=== PATIENT | female | born 1950 | race Caucasian/White ===

== ENCOUNTER 2023-01-25 12:46 | Inpatient (IN) | payer MEDICAID ==
[~2023-01-25] VITALS: Ht 154.9 cm; Wt 78.5 kg
[2023-01-25 16:41] LABS: BASOPHILS % 0.6 % (0.0-2.0); EOSINOPHILS % 3.9 % (0.0-5.0); LYMPHOCYTES % 32.6 % (20.0-50.0); MEAN CORPUSCULAR HEMOGLOBIN 22.6 pg (28.0-32.0); MEAN CORPUSCULAR VOLUME 73.9 fL (81.0-99.0); MEAN PLATELET VOLUME 7.2 fl (7.4-10.4); MONOCYTES % 10.6 % (2.0-8.0); NEUTROPHILS % 52.3 % (40.0-76.0); PLATELET 304 x1000/uL (130-400); RED BLOOD CELL COUNT 2.92 mill/uL (4.2-5.4); RED CELL DISTRIBUTION WIDTH 21.3 % (11.6-14.6)
[2023-01-25 16:45] LABS: INR 1.2
[2023-01-25 16:48] LABS: HEMATOCRIT. 21.6 % (36.0-48.0); HEMOGLOBIN. 6.6 g/dL (12.0-16.0)
[2023-01-25 16:52] LABS: CHLORIDE 106 mEq/L (98-107)
[2023-01-25] MEDS ORDERED: ONDANSETRON HCL 4MG/2ML INJ IV PRN (19:15)
[2023-01-25] MEDS ORDERED: CLONIDINE 0.1MG TABLET PO PRN (19:15)
[2023-01-25] MEDS ORDERED: DIPHENHYDRAMINE 50MG/ML VIAL IV PRN (19:15)
[2023-01-25] MEDS ORDERED: ACETAMINOPHEN 325MG TABLET PO PRN (19:15)
[2023-01-25] MEDS ORDERED: IPRATROPIUM/ALBUTEROL 0.5-3(2.5)MG/3ML NEB HHN PRN (19:15)
[2023-01-25] MEDS: SODIUM CHLORIDE 0.9% 1,000 ML IV SCH (19:18)
[2023-01-25 20:00] LABS: TOTAL IRON BINDING CAPACITY 355 ug/dL (250-450)
[2023-01-25 20:32] LABS: FOLIC ACID (FOLATE) SERUM 18.1 ng/mL (>5.38)
[2023-01-25 22:30] VITALS: BP 119/60
[2023-01-25 22:53] VITALS: BP 122/62
[2023-01-26 00:06] VITALS: BP 133/65
[2023-01-26] MEDS: SODIUM CHLORIDE 0.9% 1,000 ML IV SCH ×2 (00:23→20:15)
[2023-01-26 06:37] LABS: BASOPHILS % 0.8 % (0.0-2.0); EOSINOPHILS % 3.6 % (0.0-5.0); HEMATOCRIT. 24.8 % (36.0-48.0); HEMOGLOBIN. 7.7 g/dL (12.0-16.0); LYMPHOCYTES % 22.2 % (20.0-50.0); MEAN CORPUSCULAR HEMOGLOBIN 23.6 pg (28.0-32.0); MEAN CORPUSCULAR VOLUME 75.5 fL (81.0-99.0); MEAN PLATELET VOLUME 7.5 fl (7.4-10.4); MONOCYTES % 10.3 % (2.0-8.0); NEUTROPHILS % 63.1 % (40.0-76.0); PLATELET 270 x1000/uL (130-400); RED BLOOD CELL COUNT 3.29 mill/uL (4.2-5.4); RED CELL DISTRIBUTION WIDTH 22.1 % (11.6-14.6)
[2023-01-26 07:35] LABS: CHLORIDE 107 mEq/L (98-107)
[2023-01-26 08:00] VITALS: BP 110/57
[2023-01-26] MEDS ORDERED: IPRATROPIUM BROMIDE (0.02%) 0.5MG/2.5ML NEB HHN PRN (10:30)
[2023-01-26] MEDS ORDERED: ALBUTEROL (0.083%) 2.5MG/3ML NEB HHN PRN (10:30)
[2023-01-26 12:00] VITALS: BP 112/54
[2023-01-26] MEDS ORDERED: POTASSIUM CHLORIDE 20MEQ TABLET SR PO NR (12:00)
[2023-01-26 15:00] LABS: PLATELET ESTIMATE NORMAL
[2023-01-26] MEDS: PANTOPRAZOLE SODIUM 40 MG/VIAL IV SCH (15:01)
[2023-01-26] MEDS: IRON SUCROSE COMPLEX 100 MG/5 ML ML IV SCH (15:01)
[2023-01-26 16:00] VITALS: BP 119/62
[2023-01-26 20:00] VITALS: BP 109/73
[2023-01-27 04:00] VITALS: BP 103/51
[2023-01-27 07:05] LABS: BASOPHILS % 1.8 % (0.0-2.0); EOSINOPHILS % 4.5 % (0.0-5.0); HEMATOCRIT. 23.7 % (36.0-48.0); HEMOGLOBIN. 7.3 g/dL (12.0-16.0); MEAN CORPUSCULAR HEMOGLOBIN 23.7 pg (28.0-32.0); MEAN CORPUSCULAR VOLUME 76.6 fL (81.0-99.0); MEAN PLATELET VOLUME 8.9 fl (7.4-10.4); NEUTROPHILS % 56.7 % (40.0-76.0); PLATELET 214 x1000/uL (130-400); RED BLOOD CELL COUNT 3.09 mill/uL (4.2-5.4); RED CELL DISTRIBUTION WIDTH 22.7 % (11.6-14.6)
[2023-01-27 07:18] LABS: CHLORIDE 109 mEq/L (98-107)
[2023-01-27 08:00] VITALS: BP 95/53
[2023-01-27] MEDS: PANTOPRAZOLE SODIUM 40 MG/VIAL IV SCH (09:00)
[2023-01-27] MEDS: SODIUM CHLORIDE 0.9% 1,000 ML IV SCH (12:02)
[2023-01-27] MEDS: IRON SUCROSE COMPLEX 100 MG/5 ML ML IV SCH (12:02)
[2023-01-27 12:12] VITALS: BP 105/50
[2023-01-27 16:00] VITALS: BP 99/57
[2023-01-27] MEDS ORDERED: IOHEXOL-300 100 ML BOTTLE ONE (16:26)
[2023-01-27 20:00] VITALS: BP 121/58
[2023-01-28] VITALS: BP 122/77
[2023-01-28 04:00] VITALS: BP 105/54
[2023-01-28 06:56] LABS: BASOPHILS % 0.7 % (0.0-2.0); HEMATOCRIT. 23.5 % (36.0-48.0); HEMOGLOBIN. 7.3 g/dL (12.0-16.0); LYMPHOCYTES % 20.5 % (20.0-50.0); MEAN CORPUSCULAR HEMOGLOBIN 23.8 pg (28.0-32.0); MEAN CORPUSCULAR VOLUME 76.3 fL (81.0-99.0); MEAN PLATELET VOLUME 7.8 fl (7.4-10.4); MONOCYTES % 11.5 % (2.0-8.0); NEUTROPHILS % 63.3 % (40.0-76.0); PLATELET 230 x1000/uL (130-400); RED BLOOD CELL COUNT 3.08 mill/uL (4.2-5.4); RED CELL DISTRIBUTION WIDTH 22.9 % (11.6-14.6)
[2023-01-28 08:00] VITALS: BP 101/58
[2023-01-28] MEDS: PANTOPRAZOLE SODIUM 40 MG/VIAL IV SCH (09:08)
[2023-01-28 09:33] LABS: CHLORIDE 108 mEq/L (98-107)
[2023-01-28] MEDS: IRON SUCROSE COMPLEX 100 MG/5 ML ML IV SCH (11:44)
[2023-01-28 12:00] VITALS: BP 126/66
[2023-01-28] MEDS ORDERED: PANT40TA51 MT (12:04)
== END 2023-01-28 15:46 | disposition home or self-care (01) | DRG 253 ==
LOC: ER 12:46 → EDBEDREQ 18:47 → 6EST 22:40
PROVIDERS: ADMIT Internal Medicine; ATTEND Internal Medicine
PROC: 30233N1 Transfusion of Nonautologous Red Blood Cells into Peripheral Vein, Percutaneous Approach (ICD-10-PCS; principal; 2023-01-25)
DX: K62.5 Hemorrhage of anus and rectum (principal); I31.39 Other pericardial effusion (noninflammatory); J90 Pleural effusion, not elsewhere classified; D73.4 Cyst of spleen; I48.20 Chronic atrial fibrillation, unspecified; K70.31 Alcoholic cirrhosis of liver with ascites; D62 Acute posthemorrhagic anemia; J84.9 Interstitial pulmonary disease, unspecified; D25.9 Leiomyoma of uterus, unspecified; I10 Essential (primary) hypertension; I25.10 Atherosclerotic heart disease of native coronary artery without angina pectoris; N81.10 Cystocele, unspecified; K80.20 Calculus of gallbladder without cholecystitis without obstruction; K57.90 Diverticulosis of intestine, part unspecified, without perforation or abscess without bleeding; J47.9 Bronchiectasis, uncomplicated; E87.6 Hypokalemia; E78.5 Hyperlipidemia, unspecified; D50.9 Iron deficiency anemia, unspecified; N93.9 Abnormal uterine and vaginal bleeding, unspecified; Z79.01 Long term (current) use of anticoagulants
CPT/HCPCS: 36415; 71045; 74176; 74177; 76700; 76830; 76856; 80048; 80053; 80076; 82270; 82607; 82728; 82746; 83540; 83550; 85025; 85044; 85384; 86850; 86900; 86920; 93005; 93306; 93970; 99285; C9113; P9016; Q9967